=== PATIENT | female | born 1975 | race African-American/Black ===

== ENCOUNTER 2025-06-04 12:05 | Emergency (ER) | payer MEDICAID ==
[~2025-06-04] VITALS: Ht 170.2 cm; Wt 142.0 kg
[2025-06-04 12:08] VITALS: TEMP 36.8; O2SAT 98
[2025-06-04 12:10] VITALS: O2SAT 99
[2025-06-04 13:08] LABS: BASOPHILS % 0.4 % (0.0-2.0); EOSINOPHILS % 1.5 % (0.0-5.0); HEMATOCRIT. 33.1 % (36.0-48.0); HEMOGLOBIN. 10.9 g/dL (12.0-16.0); LYMPHOCYTES % 34.8 % (20.0-50.0); MEAN PLATELET VOLUME 6.8 fl (7.4-10.4); MONOCYTES % 6.2 % (2.0-8.0); NEUTROPHILS % 57.1 % (40.0-76.0); PLATELET 341 x1000/uL (130-400); RED BLOOD CELL COUNT 4.08 mill/uL (4.2-5.4); RED CELL DISTRIBUTION WIDTH 16.3 % (11.6-14.6)
[2025-06-04 13:34] LABS: CREATININE 0.9 mg/dL (0.6-1.0); UREA NITROGEN BLOOD 14 mg/dL (9-23)
[2025-06-04 13:41] LABS: HCG SCREEN NEGATIVE
[2025-06-04 14:14] LABS: ASPARTATE AMINOTRANSFERASE 14 IU/L (<34); BILIRUBIN DIRECT < 0.1 mg/dL (<=3.0); BILIRUBIN TOTAL 0.2 mg/dL (0.1-1.0); PROTEIN TOTAL 6.9 g/dL (6.0-8.3)
[2025-06-04 14:40] LABS: CLARITY URINE CLEAR (CLEAR); COLOR URINE YELLOW (YELLOW); GLUCOSE URINE NEGATIVE (NEGATIVE); KETONES URINE TRACE (NEGATIVE); LEUKOCYTE ESTERASE URINE NEGATIVE (NEGATIVE); NITRITE URINE NEGATIVE (NEGATIVE); OCCULT BLOOD URINE NEGATIVE (NEGATIVE); PH URINE 6.5 (4.5-8.0); PROTEIN URINE NEGATIVE (NEGATIVE); SPECIFIC GRAVITY URINE 1.024 (1.005-1.030); UROBILINOGEN URINE 0.2 E.U./dL (0.2-1.0)
[2025-06-04] MEDS: ACETAMINOPHEN 500MG TABLET PO ONE (14:57)
[2025-06-04 15:05] VITALS: BP 156/86; PULSE 92; RESP 18
[2025-06-04] MEDS: ACETAMINOPHEN WITH CODEINE 300/30MG TABLET PO ONE (15:05)
[2025-06-04] MEDS ORDERED: T3 PO (15:36)
[2025-06-04] MEDS ORDERED: CLIN45GE10 TP (15:36)
== END 2025-06-04 16:02 | disposition home or self-care (01) ==
LOC: ER 12:05
DX: D25.9 Leiomyoma of uterus, unspecified (principal); I10 Essential (primary) hypertension; J45.909 Unspecified asthma, uncomplicated; Z90.49 Acquired absence of other specified parts of digestive tract; Z79.899 Other long term (current) drug therapy
CPT/HCPCS: 36415; 80048; 80076; 81003; 81025; 84703; 85025; 99283